=== PATIENT | male | born 1945 | race Caucasian/White ===

== ENCOUNTER 2021-02-18 11:51 | Inpatient (IN) | payer MEDICARE, MEDICAID ==
[~2021-02-18] VITALS: Ht 15.2 cm; Wt 81.8 kg
[2021-02-18 16:18] VITALS: BP 113/51; PULSE 77; TEMP 97.6
[2021-02-18] MEDS ORDERED: VENTOLIN0.09 MG IH (16:50)
[2021-02-18] MEDS ORDERED: AMITRIPTYLINE H25 M1 PO (16:50)
[2021-02-18] MEDS ORDERED: LIPITOR20 MG PO (16:51)
[2021-02-18] MEDS ORDERED: PEPCID 20MG TAB20 MG PO (16:52)
[2021-02-18] MEDS ORDERED: FERROUSAL325 MG PO (17:02)
[2021-02-18] MEDS ORDERED: LANTUS SOLOS100 U/ML SQ (17:03)
[2021-02-18] MEDS ORDERED: PRINIVIL5 MG PO (17:05)
[2021-02-18] MEDS ORDERED: TOPROL XL100 MG PO (17:10)
[2021-02-18] MEDS ORDERED: MAGOX250 PO (17:10)
[2021-02-18] MEDS ORDERED: ONE-A-DAY ESSE1 EACH PO (17:11)
[2021-02-18] MEDS ORDERED: PRIL40 PO (17:18)
[2021-02-18] MEDS ORDERED: MIRALAX PA17 GM/Dose PO (17:19)
[2021-02-18] MEDS ORDERED: FLOMAX 0.40.4 MG/CAP PO (17:20)
--- NOTE | 2021-02-18 17:44 | NUR ---
Patient resting in bed, A&Ox3. VSS 6L NC O2, no reported SOB. Will call Dr Greenberg for further orders. Call light within reach. Bed alarm on
[2021-02-18 19:39] VITALS: BP 102/39; PULSE 82; TEMP 97.5
[2021-02-18 19:45] VITALS: BP 135/67; PULSE 60; TEMP 97.5
[2021-02-18 21:50] VITALS: BP 106/41; PULSE 87; TEMP 97.7
--- NOTE | 2021-02-18 23:00 | NUR ---
REVIEWED HOME MEDICATIONS WITH DR SHI ANS RECEIVED TORB ORDERS ON RESTARTING. TORB FOR ACCUCHECKS ACHS AND LOW DOSE SLIDING SCALE, NPO AFTER MIDNIGHT. PT TAKES LEVEMIR 20 U SQ HS, ORDERS TO HOLD EVENING DOSE R/T NPO STATUS.
[2021-02-19] VITALS (11 sets, daily range): BP systolic 91–126; BP diastolic 40–458; PULSE 60–97; TEMP 97.5–97.9
--- NOTE | 2021-02-19 05:14 | NUR ---
COMPLAINTS OF NAUSEA, "I'M GOING TO THROW UP AND I HURT ALL OVER." NOTIFIED DR SHI. GIA FOR ZOFRAN 4MG IV Q6H PRN NAUSEA.
--- NOTE | 2021-02-19 07:17 | NUR ---
PT TAKES LANTUS 20 UNITS SQ HS AT HOME. TORB TO HOLD 02/18/[address] SHI. UPDATED THAD DICKENS IN REPORT OF NEED FOR CLARIFICATION FOR TODAY.
--- NOTE | 2021-02-19 08:21 | NUR ---
patient lying in bed, c/o pain - waiting for orders from dialysis. patient remains NPO. no BM in 3-4 days along with no urination for 24 hours patient reports. patient remains on 5L NC, O2 88-91% orthpena noted. c/o LLQ AND RLQ pain. reported to Primary Nurse, Miranda
[2021-02-19 09:28] LABS: BASO % 0.4 % (0.0-2.0); EOS % 0.4 % (0-4.0); GRAN # 6.8 (1.4-6.5); GRAN % 85.3 % (42.2-75.2); LYMPH # 0.7 (1.2-3.4); LYMPH % 9.1 % (20.0-51.0); MEAN CELL VOLUME 89 fl (80.0-100.0); MEAN CORPUSCULAR HGB CONC 33 g/dl (33.0-37.0); MEAN PLATELET VOLUME 10.8 fl (7.4-10.4); MONO # 0.3 (0.1-0.6); MONO % 3.8 % (1.7-9.3); PLATELET COUNT 200 K/mm3 (130-400); RED BLOOD COUNT 2.84 M/mm3 (4.20-5.60); REDCELL DISTRIBUTION WIDTH-CV 13.9 % (11.5-14.5)
[2021-02-19 09:37] LABS: HEMATOCRIT 25.2 % (42.0-52.0); HEMOGLOBIN 8.3 g/dl (13.5-18.0); MEAN CORPUSCULAR HEMOGLOBIN 29 pg (27.0-31.0)
[2021-02-19 09:54] LABS: ALBUMIN 3.4 gm/dL (3.5-5.0); CALCIUM 8.3 mg/dL (8.4-10.2); CREATININE, serum 10.2 (0.66-1.25)
[2021-02-19 09:55] LABS: PHOSPHOROUS 10.8 mg/dL (2.5-4.5); POTASSIUM 6.1 mmol/L (3.4-5.0)
--- NOTE | 2021-02-19 10:43 | NUR ---
SEE MERGE DOCUMENTATION FOR MEDICATION ADMINISTRATION AND INTRA/POST PROCEDURE SEDATION ASSESSMENTS.
--- NOTE | 2021-02-19 13:49 | NUR ---
Patient tolerated his 1st HD tx with 750 mL fluid removal today. Next planned HD tx tomorrow, Monday09/20/20 @ 0800.
--- NOTE | 2021-02-19 14:51 | NUR ---
Primary nurse was assisted with [id number] patient care by [employer] [facility] Fern Evangelista and [employer] instructor Kasey Alexander MSN, RN
--- NOTE | 2021-02-19 16:28 | NUR ---
KENNEDI attempted to meet with the patient to discuss discharge plan. The patient was sleeping and would not wake. KENNEDI attempted to contact the patient's , Dorys Martinez (ph#[phone]), to complete intake. She did not answer. KENNEDI left her a voicemail.
--- NOTE | 2021-02-19 18:18 | NUR ---
Patient has been very tired today. Does not have an appetite stating, "nothing sounds good". Patient was encouraged to drink some water, broth, adn eat jello. Patient is refusing these and just continues to sleep.
[2021-02-19 21:39] LABS: HEPATITIS B SURFACE ANTIBODY <2.0 (()); HEPATITIS B SURFACE ANTIGEN Negative (Negative); HEPATITIS C VIRUS ANTIBODY Negative (Negative)
--- NOTE | 2021-02-19 22:06 | NUR ---
PT RESTING IN BED. EVENING MEDICATIONS GIVEN. PT ON OXYGEN AT 4L AND O2 SAT IS 89%. PT REPORTS ABD PAIN THAT FEELS STABBING AND RATES A 9/10, THINKS HE NEEDS TO HAVE A BM DUE TO NOT HAVING ONE IN THE LAST 5 DAYS. ASKED PT IF HE WOULD LIKE ME TO CALL FOR PAIN MEDS AND SAYS HE DOESN'T WANT TO TAKE ANY AND WANTS TO SEE IF IS PASSES, WILL CONTINUE TO MONITOR. OFFERED PRUNE JUICE TO HELP MOVE THE BOWELS AND PT ALSO REFUSES THIS. DENIES ANY OTHER NEEDS AT THIS TIME.
[2021-02-20 04:11] VITALS: BP 119/43; PULSE 97; TEMP 97.8
--- NOTE | 2021-02-20 06:14 | NUR ---
PT REQUESTING PAIN MEDICATION FOR ABDOMINAL "STABBING" PAIN. WILL PASS ALONG TO DAY SHIFT. DENIES ANY OTHER NEEDS AT THIS TIME.
[2021-02-20 08:37] VITALS: BP 124/45; PULSE 99; TEMP 98
--- NOTE | 2021-02-20 09:02 | NUR ---
Patient laying in bed upon entering room. C/o stomach pain and stated he had not had a BM in 4-5days. Patient was given miralax with warm prune juice. This RN notified strategic buyer, Lashon, who said Dr. Greenberg will be here around 1100. This RN will speak with Dr. Greenberg to find a solution to the patient's constipation/discomfort. Patient c/o nausea as well and was given PRN zofran IV. Patient also given an emesis basin, but has not vomited. Patient is currently at dialysis and will remain there for a few hours under the care of Lashon - CHRISSIE.
[2021-02-20 09:39] LABS: BASO % 0.1 % (0.0-2.0); GRAN # 8.4 (1.4-6.5); GRAN % 82.1 % (42.2-75.2); HEMATOCRIT 24.8 % (42.0-52.0); HEMOGLOBIN 8.2 g/dl (13.5-18.0); LYMPH # 0.9 (1.2-3.4); LYMPH % 8.7 % (20.0-51.0); MEAN CELL VOLUME 88 fl (80.0-100.0); MEAN CORPUSCULAR HEMOGLOBIN 29 pg (27.0-31.0); MEAN CORPUSCULAR HGB CONC 33 g/dl (33.0-37.0); MEAN PLATELET VOLUME 11.3 fl (7.4-10.4); MONO # 0.8 (0.1-0.6); MONO % 8.3 % (1.7-9.3); PLATELET COUNT 206 K/mm3 (130-400); RED BLOOD COUNT 2.83 M/mm3 (4.20-5.60); REDCELL DISTRIBUTION WIDTH-CV 14.4 % (11.5-14.5)
[2021-02-20 09:40] LABS: ALBUMIN 3.4 gm/dL (3.5-5.0); CALCIUM 8.6 mg/dL (8.4-10.2); CREATININE, serum 9.12 (0.66-1.25)
[2021-02-20 09:43] LABS: PHOSPHOROUS 10.8 mg/dL (2.5-4.5); POTASSIUM 6.1 mmol/L (3.4-5.0)
[2021-02-20 11:41] VITALS: BP 129/45; PULSE 99; TEMP 98
[2021-02-20 11:49] VITALS: BP 146/58; PULSE 99; TEMP 97.9
--- NOTE | 2021-02-20 11:49 | NUR ---
PATIENT TOLERATED 2ND HD TX WITH 2L FLUID REMOVAL. NEXT HD TX PENDING LABS & PATIENT ASSESSMENT.
[2021-02-20 16:33] VITALS: BP 149/61; PULSE 102; TEMP 97.6
[2021-02-20 20:14] VITALS: BP 154/55; PULSE 102; TEMP 98.2
--- NOTE | 2021-02-20 20:16 | NUR ---
PT RESTING IN BED. EVENING MEDICATIONS GIVEN. PT VERY DROWSY, STRUGGLES TO STAY AWAKE DURING ASSESSMENT. COMPLAINS OF PAIN AT A 7/10 OVER ENTIRE BODY. REPORTS FEELING WEAK, PT ABLE TO LIFT EXTREMITIES AND HOLD. EXPERIENCES CONFUSION AT TIMES. DENIES ANY NEEDS. WILL CONTINUE TO MONITOR.
[2021-02-21] VITALS (11 sets, daily range): BP systolic 12–152; BP diastolic 37–56; PULSE 96–107; TEMP 98.1–98.7
[2021-02-21 09:42] LABS: MEAN CELL VOLUME 89 fl (80.0-100.0); MEAN CORPUSCULAR HGB CONC 33 g/dl (33.0-37.0); MEAN PLATELET VOLUME 10.7 fl (7.4-10.4); PLATELET COUNT 165 K/mm3 (130-400); RED BLOOD COUNT 2.92 M/mm3 (4.20-5.60); REDCELL DISTRIBUTION WIDTH-CV 14.6 % (11.5-14.5)
[2021-02-21 09:48] LABS: HEMOGLOBIN 8.5 g/dl (13.5-18.0); MEAN CORPUSCULAR HEMOGLOBIN 29 pg (27.0-31.0)
[2021-02-21 09:59] LABS: ALBUMIN 3.4 gm/dL (3.5-5.0); CREATININE, serum 6.63 (0.66-1.25); PHOSPHOROUS 7.4 mg/dL (2.5-4.5)
[2021-02-21 10:04] LABS: BAND 1 % (0-10); PLATELET ESTIMATE INCREASED (NORMAL)
[2021-02-21 10:05] LABS: ANISOCYTOSIS 2+; HYPOCHROMIA 1+
[2021-02-21 10:06] LABS: MICROCYTOSIS 1+
[2021-02-21 10:11] LABS: NEUTROPHILS 89 % (42.0-75.2)
[2021-02-21 10:12] LABS: LYMPHOCYTE 9 % (20.0-51.0); METAMYELOCYTE 1 % (0-0)
--- NOTE | 2021-02-21 10:13 | NUR ---
Patient is very tired today. Only had a urine output of 50mL overnight. This RN notified Dr. Greenberg and a bladder scan was performed. Patient had >539mL in his bladder. Tomlinson was placed and 550mL was emptied, UA was also collected. All scheduled morning medications were administered without difficulty. Patient remains in bed, still no BM. Patient did state that there have been a few times he felt like he needed to go, but just produced gas.
[2021-02-21 10:33] LABS: COLLECTION METHOD IN
[2021-02-21 10:39] LABS: MUCOUS Present /lpf; PH 5 (5-8); SQUAMOUS EPITHELIAL 0-2 /hpf; URINE APPEARANCE Hazy; URINE BACTERIA None Seen /hpf; URINE BILIRUBIN Negative (NEGATIVE); URINE BLOOD Negative (NEGATIVE); URINE COLOR Yellow; URINE GLUCOSE 1+ (NEGATIVE); URINE KETONE Trace (NEGATIVE); URINE LEUKOCYTE ESTERASE Negative (NEGATIVE); URINE NITRATE Negative (NEGATIVE); URINE PROTEIN(semi-quant) 2+ (NEGATIVE); URINE RBC 0-2 /hpf; URINE UROBILINOGEN Negative (NEGATIVE)
--- NOTE | 2021-02-21 13:48 | NUR ---
SW met with patient to complete intake. Patient states that he lives in [facility] currently due to Oswaldo being in a usp currently. Patient states that he currently does not have any other POC. Patient states that he obtains meals on wheels services, does not utilize DME and is independent with ADL's, patient is unsure of who is PCP and states that he obtains medications from [facility]. Patient provides that he does not have a DPOA of and did not wish to appoint anyone at this time. Patient states the his plan is to return to his home upon DC, and has no concerns with doing so. DC plan: home, (may need placement)
[2021-02-21 16:08] LABS: GLUCOSE,PLEURAL FLUID 132 mg/dL; TOTAL PROTEIN,PLEURAL FLUID 2.2 gm/dL
[2021-02-21 16:43] LABS: PLEURAL FLUID RBC 2000 /mm3 (0-0); PLEURAL FLUID WBC 578 /mm3
[2021-02-21 16:50] LABS: PLEURAL FLUID APPEARANCE HAZY; PLEURAL FLUID COLOR YELLOW
--- NOTE | 2021-02-21 18:45 | NUR ---
Patient tolerated thoracentesis well, this RN assisted Dr. Keane. Patient's VSS. Patient is currently sitting up in bed, eating dinner. Patient is doing much better as compared to yesterday and this morning.
--- NOTE | 2021-02-21 23:01 | NUR ---
Patient sleeping in bed upon enter the room. Patient drowsy but wake up to answer questions briefly. Patient denies pain or SOB. Breathing even and unlabored. SPO2 above 90% on 2L via NC. Patient states feeling very tired. Tomlinson catheter patent and draining clear yellow urine. Bumex drip infusing at 5ml/hr via Left PICC site. Left upper chest dialysis cath site dressing C/D/I. Patient's called this nurse around 8pm. Updated her with patient's condition. Call light in reach. Bed alarms on. Will continue to monitor.
[2021-02-22 00:23] VITALS: BP 102/57; PULSE 106; TEMP 98.2
[2021-02-22 04:13] VITALS: BP 103/46; PULSE 106; TEMP 98.1
--- NOTE | 2021-02-22 06:22 | NUR ---
Patient transferred to room 321 via hospital bed at 06:15 am for dialysis this morning.
[2021-02-22 07:04] LABS: HEMATOCRIT 24.6 % (42.0-52.0); HEMOGLOBIN 8.2 g/dl (13.5-18.0); MEAN CELL VOLUME 87 fl (80.0-100.0); MEAN CORPUSCULAR HEMOGLOBIN 29 pg (27.0-31.0); MEAN CORPUSCULAR HGB CONC 33 g/dl (33.0-37.0); MEAN PLATELET VOLUME 10.9 fl (7.4-10.4); PLATELET COUNT 149 K/mm3 (130-400); RED BLOOD COUNT 2.84 M/mm3 (4.20-5.60)
--- NOTE | 2021-02-22 07:04 | NUR ---
Report received from CHRISSIE Callahan. Pt. out of his room, at dialysis at this time.
[2021-02-22 07:15] LABS: ALBUMIN 3.2 gm/dL (3.5-5.0); CALCIUM 8.9 mg/dL (8.4-10.2); CREATININE, serum 6.74 (0.66-1.25); PHOSPHOROUS 5.5 mg/dL (2.5-4.5); POTASSIUM 4.4 mmol/L (3.4-5.0)
[2021-02-22 07:54] LABS: BAND 9 % (0-10); BASOPHIL 1 % (0-2); EOSINOPHIL 1 % (0-4); LYMPHOCYTE 9 % (20.0-51.0); NEUTROPHILS 68 % (42.0-75.2)
[2021-02-22 07:55] LABS: PLATELET ESTIMATE NORMAL (NORMAL)
--- NOTE | 2021-02-22 09:47 | NUR ---
PATIENT TOLERATED HIS 3RD HD TX WITH 3.5L FLUID REMOVAL. NEXT PLANNED HD TX PENDING LABS & ASSESSMENT.
[2021-02-22 10:24] VITALS: BP 134/57; PULSE 104; TEMP 98.1
--- NOTE | 2021-02-22 10:44 | NUR ---
Pt. back from dialysis. Pt. alert, sitting up, eating breakfast. Pt. able to speak to his Dorys on the phone. This RN also updated Rosa with her 's status. Pt. denies pain. Pt. alert to person, time, forgetful of hospital location. Pt. thought he was at [facility]. This RN reoriented the pt. to let him know he is at [facility] in [place], [place]. Call light and belongings in reach. Bed alarm on.
[2021-02-22 12:27] VITALS: BP 152/68; PULSE 105; TEMP 98.4
--- NOTE | 2021-02-22 13:24 | NUR ---
Highway Patrol Pilot spoke with Dr. Greenberg who advised patient will need to be set up at [facility] in [place], [place] and will also need rehab placement. SW requested PT/OT orders from Dr. Greenberg. SW then met with patient to review discharge plan. Patient advised he was working with KENNEDI Saunders from the [facility] on getting to a senior living in [place]. KENNEDI contacted KENNEDI Pickett who advised patient's , Dorys Martinez is at [facility] in [place] and she was working on getting patient there as well. KENNEDI contacted admissions at [facility] and faxed referral. KENNEDI also contacted Rosaura at [facility] (ph#[phone]) who advised SW would need to get in contact with [facility] admissions to start referral process, however did also advise that their Senior Fire Protection Engineer has accepted. KENNEDI contacted [facility] and faxed referral (SR #[phone]). Discharge Plan: Awaiting screen from [facility]
--- NOTE | 2021-02-22 15:38 | NUR ---
Distillery Worker received a phone call from Denise at [facility] and she advised that they do not have bed availability for patient at this time. SW contacted Jacqui at [facility] and faxed referral.
[2021-02-22 16:00] VITALS: BP 117/70; PULSE 105; TEMP 98.6
--- NOTE | 2021-02-22 18:40 | NUR ---
Pt. appears to be improving. Pt. OOB to the bathroom w/ standby assist twice to move his bowels today. Pt. worked with therapy. Good PO intake. Tomlinson draining adequate amounts of clear, yellow urine. Bumex drip infusing per order. Bed alarm on, call light and belongings in reach.
[2021-02-22 19:14] VITALS: BP 168/74; PULSE 102
--- NOTE | 2021-02-22 22:19 | NUR ---
PT RESTING IN BED. EVENING MEDICATIONS GIVEN. LUNGS AUSCULTATED WITH EX. WHEEZES. PT A&O X4. DENIES ANY NEEDS AT THIS TIME. WILL CONTINUE TO MONITOR.
[2021-02-23] VITALS (7 sets, daily range): BP systolic 136–166; BP diastolic 53–77; PULSE 96–114; TEMP 97.8–98.9
--- NOTE | 2021-02-23 10:30 | NUR ---
Patient up in chair watching tv upon entering the room. Bumex drip running as ordered. Tomlinson catheter in place. No kinks in tubing, securement device in use. Patient C/O 8/10 pain in his BLE, describes as a deep aching. CAMILA Saldivar notified. Scheduled medications given. Shift assessment preformed. Patient denies any further pain, discomfort, or further needs at this time. VSS. Call light in reach. Fall precautions in place.
--- NOTE | 2021-02-23 15:55 | NUR ---
Rug Layer collaborated with Dr. Greenberg about discharge planning and he advised that he spoke with patient's primary care physician about acceptance at [facility]. SW did advised Dr. Greenberg that there may be transportation barriers as patient is on oxygen and Medicaid transport cannot provide oxygen. KENNEDI faxed referral to KENNEDI Pickett at [facility]. Alfredo Saunders followed up with KENNEDI and advised they would not be able to accept referral as their e mail system administrator has declined. KENNEDI contacted Jacqui at [facility] who advised they are reviewing referral and will follow up with an answer as soon as possible. KENNEDI followed up with [facility] admissions and was advised they are sending records to the [facility] that will follow patient upon discharge, Dr. Garcia. Discharge Plan: Pending screen from [facility].
--- NOTE | 2021-02-23 21:37 | NUR ---
PT RESTING IN BED. EVENING MEDICATIONS GIVEN. PT ON OXYGEN AT 3L VIA NC. LUNG SOUNDS AUSCULTATED WITH WHEEZES. DENIES ANY NEEDS AT THIS TIME. WILL CONTINUE TO MONITOR.
[2021-02-24 03:28] VITALS: BP 161/78; PULSE 102; TEMP 98.5
--- NOTE | 2021-02-24 06:14 | NUR ---
PT HAD A RESTFUL NIGHT. DENIES ANY NEEDS AT THIS TIME.
--- NOTE | 2021-02-24 07:08 | NUR ---
Bedside shift report complete. Pt. awake in bed, sitting up and using his laptop. Bed alarm on, call light and belongings in reach.
[2021-02-24 07:44] VITALS: BP 182/83; PULSE 118; TEMP 98.3
--- NOTE | 2021-02-24 09:40 | NUR ---
Pt. worked with therapy and sitting up OOB in chair. Plan for dialysis at 11. Pt. denies needs, call light and belongings in reach.
[2021-02-24 11:49] VITALS: BP 149/77; PULSE 110; TEMP 98.6
[2021-02-24 12:39] LABS: BASO # 0.1 (0.0-0.2); BASO % 0.5 % (0.0-2.0); EOS # 0.4 (0.0-0.7); EOS % 3.4 % (0-4.0); GRAN # 7.9 (1.4-6.5); GRAN % 76.6 % (42.2-75.2); HEMATOCRIT 27.2 % (42.0-52.0); HEMOGLOBIN 9.2 g/dl (13.5-18.0); MEAN CELL VOLUME 86 fl (80.0-100.0); MEAN CORPUSCULAR HEMOGLOBIN 29 pg (27.0-31.0); MEAN CORPUSCULAR HGB CONC 34 g/dl (33.0-37.0); MEAN PLATELET VOLUME 11.2 fl (7.4-10.4); MONO # 0.9 (0.1-0.6); MONO % 8.7 % (1.7-9.3); PLATELET COUNT 147 K/mm3 (130-400); RED BLOOD COUNT 3.15 M/mm3 (4.20-5.60)
[2021-02-24 12:51] LABS: ALBUMIN 3.5 gm/dL (3.5-5.0); CALCIUM 9.6 mg/dL (8.4-10.2); CREATININE, serum 4.01 (0.66-1.25)
--- NOTE | 2021-02-24 14:50 | NUR ---
Desk Sergeant spoke with [facility] Admissions and patient has been accepted by the [facility]. KENNEDI spoke with Rosaura at [facility] who advised patient's chair time will be MWF at 1100. KENNEDI contacted Jacqui at [facility] who advised they would be able to accept tomorrow once patient's primary care physician returns to the office tomorrow and can do admission paperwork. Transport time tomorrow set for 1000. SW updated Janna, Nurse Practitioner and Dr. Greenberg. Jacqui at [facility] inquired about patient's COVID vaccination status. SW met with patient who advised he has had both COVID vaccine shots. Patient is also agreeable with discharge to [facility].
--- NOTE | 2021-02-24 14:56 | NUR ---
Loftsman notified Meme at [facility] that patient is on 3 liters of oxygen and will need it at time of transport.
--- NOTE | 2021-02-24 15:13 | NUR ---
PATIENT TOLERATED HIS 4TH HD TX WITH 2.5L FLUID REMOVAL TODAY. NEXT PLANNED HD TX ON Monday @ 0800.
[2021-02-24 15:24] VITALS: BP 126/55; PULSE 104; TEMP 97.7
--- NOTE | 2021-02-24 16:58 | NUR ---
Grant cath removed per order from SALES AND MARKETING REPRESENTATIVE Abbie. Pt.'s grant output had sediment and looked blood tinged.
[2021-02-24 19:44] VITALS: BP 155/79; PULSE 115; TEMP 98.4
--- NOTE | 2021-02-24 23:01 | NUR ---
PT RESTING IN RECLINER, HELPED BACK TO BED. EVENING MEDICATIONS GIVEN. EDEMA NOTED TO BUE. LUNGS SOUNDS DIMINSHED. DENIES ANY NEEDS. WILL CONTINUE TO MONITOR.
[2021-02-25 00:01] VITALS: BP 140/68; PULSE 100; TEMP 98
[2021-02-25 04:37] VITALS: BP 138/67; PULSE 104; TEMP 98.1
--- NOTE | 2021-02-25 07:09 | NUR ---
Bedside shift report received from CHRISSIE Pastrana. Pt. resting in bed w/ eyes closed. Bed alarm on, call light and belongings in reach.
[2021-02-25 08:00] VITALS: BP 150/71; PULSE 111; TEMP 98.5
--- NOTE | 2021-02-25 08:40 | NUR ---
Plan for pt. to go to rehab today. AM meds given. rebar worker Carri called to let this RN pt. is supposed to go to [facility] for 1000. Will call LUIZ Leiva to inquire about d/c orders as well as inquire about pt.'s PICC line that is in place. Pt. OOB to chair, waiting for breakfast. Chair alarm on, call light in reach.
[2021-02-25] MEDS ORDERED: TOPROL XL 50MG50 MG PO (10:37)
[2021-02-25] MEDS ORDERED: BUMEX2 MG PO (10:38)
[2021-02-25] MEDS ORDERED: PHOSLO667 MG PO (10:38)
--- NOTE | 2021-02-25 10:55 | NUR ---
Pt. en route to [facility]. Discharge order in place. PICC line to left upper arm has been removed by charge nurse Franks per provider order. Report provided to Nurse Suarez from [facility].
--- NOTE | 2021-02-25 13:36 | NUR ---
Stove Tender contacted Jacqui at [facility] to confirm transport time of 1000. SW met with patient to provide transport time and he is agreeable to discharge to [facility]. SW reviewed IM form with patient who verbalized understanding and provided signature. SW placed form in chart and offered copy to patient, who declined. SW faxed discharge orders to [facility]. Meme at [facility] contacted KENNEDI and requested a CARE assessment. KENNEDI advised CARE assessments are not completed when patient discharges with skilled orders. Discharge Plan: [facility]
[2021-04-01] MEDS ORDERED: BUMEX2 MG PO (09:21)
[2021-04-01] MEDS ORDERED: PHOSLO667 MG PO (09:22)
[2021-04-01] MEDS ORDERED: TOPROL XL 50MG50 MG PO (09:34)
== END 2021-02-25 11:11 | DRG 640 ==
LOC: MEDICAL 11:51
PROVIDERS: Internal Medicine Pulmonary Disease; ADMIT Internal Medicine Nephrology
PROC: 5A1D70Z Performance of Urinary Filtration, Intermittent, Less than 6 Hours Per Day (ICD-10-PCS; 2021-02-19)
PROC: 02H633Z Insertion of Infusion Device into Right Atrium, Percutaneous Approach (ICD-10-PCS; 2021-02-19)
PROC: 0JH63XZ Insertion of Tunneled Vascular Access Device into Chest Subcutaneous Tissue and Fascia, Percutaneous Approach (ICD-10-PCS; 2021-02-19)
PROC: 0W993ZZ Drainage of Right Pleural Cavity, Percutaneous Approach (ICD-10-PCS; principal; 2021-02-21)
DX: E87.70 Fluid overload, unspecified (principal); N18.6 End stage renal disease; J96.01 Acute respiratory failure with hypoxia; I12.0 Hypertensive chronic kidney disease with stage 5 chronic kidney disease or end stage renal disease; N25.81 Secondary hyperparathyroidism of renal origin; I47.1 Supraventricular tachycardia; J90 Pleural effusion, not elsewhere classified; N17.9 Acute kidney failure, unspecified; E78.5 Hyperlipidemia, unspecified; D63.1 Anemia in chronic kidney disease; E11.22 Type 2 diabetes mellitus with diabetic chronic kidney disease; N40.0 Benign prostatic hyperplasia without lower urinary tract symptoms; K21.9 Gastro-esophageal reflux disease without esophagitis; J44.9 Chronic obstructive pulmonary disease, unspecified; E87.5 Hyperkalemia; D50.9 Iron deficiency anemia, unspecified; Z20.822 Contact with and (suspected) exposure to COVID-19; E83.39 Other disorders of phosphorus metabolism; Z90.49 Acquired absence of other specified parts of digestive tract; Z86.16 Personal history of COVID-19; Z79.4 Long term (current) use of insulin; Z87.891 Personal history of nicotine dependence; Z99.2 Dependence on renal dialysis
CPT/HCPCS: A4314; C1750; C1769; C1887; J0690; J1644; J1756; J1815; J1940; J2405; J7030

== ENCOUNTER → 2021-04-06 | Outpatient (CLI) | payer MEDICARE, MEDICAID ==
[~2021-04-06] VITALS: Ht 167.6 cm; Wt 71.2 kg
[~2021-04-06] MED LIST: AMITRIPTYLINE H25 M1 PO; BUMEX2 MG PO; FERROUSAL325 MG PO; FLOMAX 0.40.4 MG/CAP PO; LANTUS SOLOS100 U/ML SQ; LIPITOR20 MG PO; MAGOX250 PO; MIRALAX PA17 GM/Dose PO; ONE-A-DAY ESSE1 EACH PO; PEPCID 20MG TAB20 MG PO; PHOSLO667 MG PO; PRIL40 PO; PRINIVIL5 MG PO; TOPROL XL 50MG50 MG PO; TOPROL XL100 MG PO; VENTOLIN0.09 MG IH
[2021-04-06 10:09] VITALS: BP 145/72; PULSE 85; TEMP 98.8
[2021-04-06 11:15] VITALS: BP 143/68; PULSE 86
== END ==
LOC: COL.RAD 09:52
DX: Z45.2 Encounter for adjustment and management of vascular access device (principal)